=== PATIENT | female | born 1955 | race African-American/Black ===

== ENCOUNTER → 2025-06-27 | Outpatient (CLI) | payer MEDICARE, MEDICAID ==
[~2025-06-27] MED LIST: CLOP75TA34 PO; HYDR-4353 PO; LOP25T PO; OMEP-84 PO; iohexol 350 MG/ML 50ML vial IV ONE
--- NOTE | 2025-06-27 12:44 | RADIOLOGY REPORT ---
Indication: UNSPECIFIED OPEN WOUND, LEFT LOWER LEG, SEQUELA Technique: CT axial images of the chest, abdomen, pelvis, lower extremities are obtained with intravenous contrast per angiogram protocol. Coronal and sagittal reformats were obtained. Radiation Dose Information: CTDI volume is 4.5 mGy. Dose-length product is 1686 mGy*cm Comparison: None FINDINGS: The heart is normal in size. Ascending aorta measures 3.4 cm. Descending thoracic aorta measures 2.1 cm. The abdominal aorta demonstrates tortuosity. Infrarenal abdominal aorta measures 1.6 cm in diameter. Celiac, SMA, renal arteries patent. There are 2 left renal arteries. Extensive tortuosity of the common, external iliac arteries without high-grade stenoses. Right [employer], SFA, popliteal arteries demonstrate no high-grade stenosis. The right anterior tibial, posterior tibial and peroneal arteries demonstrate no high- grade stenoses. The left common femoral, superficial femoral, popliteal arteries demonstrate no high-grade stenosis. Left anterior tibial, posterior tibial and peroneal arteries demonstrate no high-grade stenoses. The trachea is patent. No pneumothorax. There is bilateral atelectasis. Elevation of the right hemidiaphragm. No supraclavicular or axillary lymphadenopathy. Right adrenal gland not well characterized. Left adrenal gland unremarkable. Spleen, pancreas unremarkable. Probable cholecystectomy. Hypodense region in the left hepatic lobe centrally measuring 4.7 x 4.9 cm. No enhancing hepatic lesion present. The bilateral kidneys demonstrate no hydronephrosis. Postsurgical changes stomach. Small bowel loops are nondilated. Moderate volume stool within the colon. Colonic diverticular disease. Ventral abdominal wall hernia repair changes. Bladder is partially distended. No free pelvic fluid. Soft tissue edema/ anasarca. S shaped curvature of the thoracolumbar spine. Moderate to severe thoracolumbar degenerative disc disease. Enlarged left inguinal lymph nodes measuring up to 1.6 cm. There is extensive left lower extremity soft tissue edema and stranding diffusely. Left knee arthrodesis changes. There is some soft tissue air within the arthrodesis region, axial image 252 of [id number]. Soft tissue ulceration along the expected pretibial region. There is less pronounced right lower extremity soft tissue edema and stranding. Severe degenerate changes right knee. Lateral subluxation of the patella. IMPRESSION: Aortoiliac tortuosity. No evidence for hemodynamically significant stenosis involving the bilateral fem-pop , infrapopliteal/tibial circulation Postsurgical changes left lower extremity including left knee arthrodesis extensive left lower extremity soft tissue edema and stranding. Correlate for cellulitis, and other etiologies. Small left soft tissue Air within the arthrodesis region axial image 252 of [id number] as described above. Soft tissue ulceration along the pretibial expected region. Correlate for infection / osteomyelitis, postoperative changes. Left inguinal lymphadenopathy, likely related to the underlying process within the left lower extremity. Elevation right hemidiaphragm. Ventral abdominal wall hernia repair changes. Left hepatic lobe hypodense region measuring 4.9 x 4.7 cm, possibly region of previous infarction/ trauma/ laceration. Recommend multiphasic MRI abdomen with and without contrast to characterize.
== END | disposition home or self-care (01) ==
LOC: RAD 09:43
PROVIDERS: ATTEND Radiology Diagnostic Radiology
DX: S83.012A Lateral subluxation of left patella, initial encounter (principal); S81.802S Unspecified open wound, left lower leg, sequela; L03.116 Cellulitis of left lower limb; K57.30 Diverticulosis of large intestine without perforation or abscess without bleeding; N32.89 Other specified disorders of bladder; M51.34 Other intervertebral disc degeneration, thoracic region; R59.0 Localized enlarged lymph nodes; L98.499 Non-pressure chronic ulcer of skin of other sites with unspecified severity; X58.XXXS Exposure to other specified factors, sequela; X58.XXXA Exposure to other specified factors, initial encounter; Y93.89 Activity, other specified; Y92.89 Other specified places as the place of occurrence of the external cause; Y99.8 Other external cause status
CPT/HCPCS: 71275; 75635; Q9967